=== PATIENT | male | born 1955 | race Caucasian/White ===

== ENCOUNTER 2025-10-20 08:39 | Inpatient (IN) | payer BC ==
[2025-10-20] MEDS ORDERED: Sodium Chloride 0.9% 2.5 ML Syringe FLUSH PRN ×2 (09:12→11:52)
[2025-10-20] MEDS ORDERED: Sodium Chloride 0.9% 10 ML Syringe FLUSH PRN ×2 (09:12→11:52)
[2025-10-20 09:37] LABS: BASOPHILS ABSOLUTE AUTO 0.02 K/uL (0.00-0.20); BASOPHILS PERCENT AUTO 0.3 % (0.0-1.0); EOSINOPHILS ABSOLUTE AUTO 0.01 K/uL (0.00-0.45); EOSINOPHILS PERCENT AUTO 0.1 % (0.0-6.0); IMMATURE GRAN ABSOLUTE AUTO 0.03 K/uL (0.00-0.05); IMMATURE GRAN PERCENT AUTO 0.4 % (0.0-0.4); LYMPHOCYTES ABSOLUTE AUTO 0.94 K/uL (1.00-4.80); LYMPHOCYTES PERCENT AUTO 13.2 % (24.0-44.0); MEAN PLATELET VOLUME 10.3 fL (9.4-12.4); MONOCYTES ABSOLUTE AUTO 0.58 K/uL (0.00-0.80); MONOCYTES PERCENT AUTO 8.2 % (0.0-8.0); NEUTROPHILS ABSOLUTE AUTO 5.52 K/uL (1.80-7.70); NEUTROPHILS PERCENT AUTO 77.8 % (41.0-71.0); NRBC ABSOLUTE 0.00 K/uL (0.00-0.02); NRBC PERCENT 0.0 /100WBC (0.0-0.2); PLATELET COUNT,PLT 221 K/uL (150-400); RED BLOOD CELL COUNT 4.97 M/uL (4.52-5.90); WHITE BLOOD CELL COUNT,WBC 7.10 K/uL (3.9-11.3)
[2025-10-20 09:42] LABS: BICARBONATE,VENOUS 31.0 mEq/L (22-29); PCO2 VENOUS 41.0 mmHG (41-51); PH,VENOUS 7.49 (7.32-7.43); PO2 VENOUS 36.0 mmHG (35-45)
[2025-10-20 09:43] LABS: BASE EXCESS VENOUS 7.1 (-2.0-3.0)
[2025-10-20] MEDS ORDERED: 50% Dextrose in Water 50 ML Syringe IVPUSH PRN ×3 (09:44→11:55)
[2025-10-20 09:58] LABS: INR 1.08 (0.86-1.11); PTT,PARTIAL THROMBOPLSTIN TIME 24.5 SEC (23.9-30.7)
[2025-10-20] MEDS: VANCOmycin 1.75 GM/350 ML 1.75 GM in Premix Bag 1 BAG IV ONE (10:12)
[2025-10-20 10:13] LABS: A/G RATIO 0.6 (0.9-1.6); ALANINE AMINOTRANSFERASE,ALT 19.0 IU/L (14-63); ASPARTATE AMNIOTRANSFERASE,AST 18.0 IU/L (15-37); BILIRUBIN TOTAL 0.8 mg/dL (0.2-1.0); BLOOD UREA NITROGEN,BUN 12.0 mg/dL (7.0-18.0); CARBON DIOXIDE,CO2 28.9 mmol/L (21.0-32.0); CHLORIDE,CL 94.0 mmol/L (98-107); CREATININE 1.3 mg/dL (0.8-1.3); EST CRCL DRUG DOSING (CG) 56.15 mL/min; GLUCOSE RANDOM 399.0 mg/dL (74-106); POTASSIUM,K 4.2 mmol/L (3.5-5.1); PROTEIN TOTAL,TP 7.7 g/dL (6.4-8.2); SODIUM,NA 131.0 mmol/L (136-148)
[2025-10-20] MEDS: Insulin Regular, Human 100 Units/ML 10 ML Vial IVPUSH ONE ×2 (10:13→11:13)
[2025-10-20 10:17] LABS: ESTIMATED GFR 60.0 mL/min (>60)
[2025-10-20] MEDS: Iopamidol 755 Mg/ML 100 ML Bottle IVPUSH ONE (10:41)
[2025-10-20] MEDS ORDERED: Ondansetron 4 MG/2 ML SDV IVPUSH PRN (11:52)
[2025-10-20] MEDS ORDERED: Naloxone 0.4 MG/ML SDV IVPUSH PRN (12:19)
[2025-10-20] MEDS: Gadoteridol 279.3 MG/ML 20 ML SDV IVPUSH ONE (12:29)
[2025-10-20 12:41] LABS: CHOLESTEROL HDL 40.0 mg/dL (40-60); CHOLESTEROL LDL CALCULATED 84.0 mg/dL (60-180); CHOLESTEROL TOTAL 143.0 mg/dL (50-200); TSH ULTRASENSITIVE 1.12 uIU/mL (0.36-3.74); VLDL CHOLESTEROL 19.0 mg/dL (5-55)
[2025-10-20] MEDS: Insulin Glargine,Human Rec. Analog 100 Units/ML 3 ML Pen SUBCUT ONE (13:06)
[2025-10-20] MEDS: Pantoprazole 40 MG in Sodium Chloride 0.9% 10 ML IVPUSH SCH (13:09)
[2025-10-20] MEDS: Insulin Glargine,Human Rec. Analog 100 Units/ML 3 ML Pen SUBCUT SCH (21:58)
[2025-10-21 06:40] LABS: BASOPHILS ABSOLUTE AUTO 0.04 K/uL (0.00-0.20); BASOPHILS PERCENT AUTO 0.6 % (0.0-1.0); EOSINOPHILS ABSOLUTE AUTO 0.15 K/uL (0.00-0.45); EOSINOPHILS PERCENT AUTO 2.2 % (0.0-6.0); IMMATURE GRAN ABSOLUTE AUTO 0.01 K/uL (0.00-0.05); IMMATURE GRAN PERCENT AUTO 0.1 % (0.0-0.4); LYMPHOCYTES ABSOLUTE AUTO 1.32 K/uL (1.00-4.80); LYMPHOCYTES PERCENT AUTO 19.8 % (24.0-44.0); MEAN PLATELET VOLUME 9.9 fL (9.4-12.4); MONOCYTES ABSOLUTE AUTO 0.53 K/uL (0.00-0.80); MONOCYTES PERCENT AUTO 7.9 % (0.0-8.0); NEUTROPHILS ABSOLUTE AUTO 4.63 K/uL (1.80-7.70); NEUTROPHILS PERCENT AUTO 69.4 % (41.0-71.0); NRBC ABSOLUTE 0.00 K/uL (0.00-0.02); NRBC PERCENT 0.0 /100WBC (0.0-0.2); PLATELET COUNT,PLT 204 K/uL (150-400); RED BLOOD CELL COUNT 4.17 M/uL (4.52-5.90); WHITE BLOOD CELL COUNT,WBC 6.68 K/uL (3.9-11.3)
[2025-10-21 07:03] LABS: BLOOD UREA NITROGEN,BUN 10.0 mg/dL (7.0-18.0); CARBON DIOXIDE,CO2 26.3 mmol/L (21.0-32.0); CHLORIDE,CL 103.0 mmol/L (98-107); CREATININE 1.2 mg/dL (0.8-1.3); EST CRCL DRUG DOSING (CG) 60.83 mL/min; ESTIMATED GFR 66.0 mL/min (>60); GLUCOSE RANDOM 225.0 mg/dL (74-106); POTASSIUM,K 3.5 mmol/L (3.5-5.1); SODIUM,NA 135.0 mmol/L (136-148)
[2025-10-21] MEDS ORDERED: Propofol 200 MG/20 ML SDV ONE (09:00)
[2025-10-21] MEDS ORDERED: fentaNYL 250 MCG/5 ML SDV ONE (09:00)
[2025-10-21] MEDS: Insulin Glargine,Human Rec. Analog 100 Units/ML 3 ML Pen SUBCUT SCH (22:01)
[2025-10-22 05:34] LABS: BASOPHILS ABSOLUTE AUTO 0.03 K/uL (0.00-0.20); BASOPHILS PERCENT AUTO 0.5 % (0.0-1.0); EOSINOPHILS ABSOLUTE AUTO 0.18 K/uL (0.00-0.45); EOSINOPHILS PERCENT AUTO 2.7 % (0.0-6.0); IMMATURE GRAN ABSOLUTE AUTO 0.02 K/uL (0.00-0.05); IMMATURE GRAN PERCENT AUTO 0.3 % (0.0-0.4); LYMPHOCYTES ABSOLUTE AUTO 1.38 K/uL (1.00-4.80); LYMPHOCYTES PERCENT AUTO 20.8 % (24.0-44.0); MEAN PLATELET VOLUME 10.2 fL (9.4-12.4); MONOCYTES ABSOLUTE AUTO 0.49 K/uL (0.00-0.80); MONOCYTES PERCENT AUTO 7.4 % (0.0-8.0); NEUTROPHILS ABSOLUTE AUTO 4.54 K/uL (1.80-7.70); NEUTROPHILS PERCENT AUTO 68.3 % (41.0-71.0); NRBC ABSOLUTE 0.00 K/uL (0.00-0.02); NRBC PERCENT 0.0 /100WBC (0.0-0.2); PLATELET COUNT,PLT 238 K/uL (150-400); RED BLOOD CELL COUNT 4.24 M/uL (4.52-5.90); WHITE BLOOD CELL COUNT,WBC 6.64 K/uL (3.9-11.3)
[2025-10-22 05:58] LABS: A/G RATIO 0.5 (0.9-1.6); ALANINE AMINOTRANSFERASE,ALT 22.0 IU/L (14-63); ASPARTATE AMNIOTRANSFERASE,AST 17.0 IU/L (15-37); BILIRUBIN TOTAL 0.7 mg/dL (0.2-1.0); BLOOD UREA NITROGEN,BUN 7.0 mg/dL (7.0-18.0); CARBON DIOXIDE,CO2 27.3 mmol/L (21.0-32.0); CHLORIDE,CL 103.0 mmol/L (98-107); CREATININE 1.1 mg/dL (0.8-1.3); EST CRCL DRUG DOSING (CG) 66.36 mL/min; GLUCOSE RANDOM 202.0 mg/dL (74-106); POTASSIUM,K 3.3 mmol/L (3.5-5.1); PROTEIN TOTAL,TP 6.5 g/dL (6.4-8.2); SODIUM,NA 137.0 mmol/L (136-148)
[2025-10-22 06:03] LABS: ESTIMATED GFR 73.0 mL/min (>60)
[2025-10-22] MEDS: Potassium Chloride 20 MEQ Tab.ER PO ONE (07:53)
[2025-10-22] MEDS: Magnesium Sulfate 2 GM/50 mL 2 GM in Premix Bag 1 BAG IV ONE (09:34)
[2025-10-22] MEDS ORDERED: 50% Dextrose in Water 50 ML Syringe IVPUSH PRN (13:55)
[2025-10-22] MEDS: Insulin Glargine,Human Rec. Analog 100 Units/ML 3 ML Pen SUBCUT SCH (21:31)
[2025-10-23 05:49] LABS: BASOPHILS ABSOLUTE AUTO 0.05 K/uL (0.00-0.20); BASOPHILS PERCENT AUTO 0.8 % (0.0-1.0); EOSINOPHILS ABSOLUTE AUTO 0.29 K/uL (0.00-0.45); EOSINOPHILS PERCENT AUTO 4.6 % (0.0-6.0); IMMATURE GRAN ABSOLUTE AUTO 0.02 K/uL (0.00-0.05); IMMATURE GRAN PERCENT AUTO 0.3 % (0.0-0.4); LYMPHOCYTES ABSOLUTE AUTO 1.39 K/uL (1.00-4.80); LYMPHOCYTES PERCENT AUTO 21.9 % (24.0-44.0); MEAN PLATELET VOLUME 9.9 fL (9.4-12.4); MONOCYTES ABSOLUTE AUTO 0.43 K/uL (0.00-0.80); MONOCYTES PERCENT AUTO 6.8 % (0.0-8.0); NEUTROPHILS ABSOLUTE AUTO 4.16 K/uL (1.80-7.70); NEUTROPHILS PERCENT AUTO 65.6 % (41.0-71.0); NRBC ABSOLUTE 0.00 K/uL (0.00-0.02); NRBC PERCENT 0.0 /100WBC (0.0-0.2); PLATELET COUNT,PLT 243 K/uL (150-400); RED BLOOD CELL COUNT 4.35 M/uL (4.52-5.90); WHITE BLOOD CELL COUNT,WBC 6.34 K/uL (3.9-11.3)
[2025-10-23 06:24] LABS: A/G RATIO 0.5 (0.9-1.6); ALANINE AMINOTRANSFERASE,ALT 22.0 IU/L (14-63); ASPARTATE AMNIOTRANSFERASE,AST 16.0 IU/L (15-37); BILIRUBIN TOTAL 0.8 mg/dL (0.2-1.0); BLOOD UREA NITROGEN,BUN 5.0 mg/dL (7.0-18.0); CARBON DIOXIDE,CO2 29.2 mmol/L (21.0-32.0); CHLORIDE,CL 103.0 mmol/L (98-107); CREATININE 1.1 mg/dL (0.8-1.3); EST CRCL DRUG DOSING (CG) 66.36 mL/min; GLUCOSE RANDOM 154.0 mg/dL (74-106); POTASSIUM,K 3.6 mmol/L (3.5-5.1); PROTEIN TOTAL,TP 6.8 g/dL (6.4-8.2); SODIUM,NA 138.0 mmol/L (136-148)
[2025-10-23 06:25] LABS: ESTIMATED GFR 73.0 mL/min (>60)
[2025-10-24 05:34] LABS: BASOPHILS ABSOLUTE AUTO 0.04 K/uL (0.00-0.20); BASOPHILS PERCENT AUTO 0.6 % (0.0-1.0); EOSINOPHILS ABSOLUTE AUTO 0.30 K/uL (0.00-0.45); EOSINOPHILS PERCENT AUTO 4.7 % (0.0-6.0); IMMATURE GRAN ABSOLUTE AUTO 0.03 K/uL (0.00-0.05); IMMATURE GRAN PERCENT AUTO 0.5 % (0.0-0.4); LYMPHOCYTES ABSOLUTE AUTO 1.56 K/uL (1.00-4.80); LYMPHOCYTES PERCENT AUTO 24.6 % (24.0-44.0); MEAN PLATELET VOLUME 9.8 fL (9.4-12.4); MONOCYTES ABSOLUTE AUTO 0.39 K/uL (0.00-0.80); MONOCYTES PERCENT AUTO 6.2 % (0.0-8.0); NEUTROPHILS ABSOLUTE AUTO 4.02 K/uL (1.80-7.70); NEUTROPHILS PERCENT AUTO 63.4 % (41.0-71.0); NRBC ABSOLUTE 0.00 K/uL (0.00-0.02); NRBC PERCENT 0.0 /100WBC (0.0-0.2); PLATELET COUNT,PLT 273 K/uL (150-400); RED BLOOD CELL COUNT 4.56 M/uL (4.52-5.90); WHITE BLOOD CELL COUNT,WBC 6.34 K/uL (3.9-11.3)
[2025-10-24 05:51] LABS: BLOOD UREA NITROGEN,BUN 5.0 mg/dL (7.0-18.0); CARBON DIOXIDE,CO2 30.9 mmol/L (21.0-32.0); CHLORIDE,CL 101.0 mmol/L (98-107); CREATININE 1.3 mg/dL (0.8-1.3); EST CRCL DRUG DOSING (CG) 56.15 mL/min; GLUCOSE RANDOM 166.0 mg/dL (74-106); POTASSIUM,K 3.3 mmol/L (3.5-5.1); SODIUM,NA 138.0 mmol/L (136-148)
[2025-10-24 05:52] LABS: ESTIMATED GFR 60.0 mL/min (>60)
[2025-10-24] MEDS: Potassium Chloride 20 MEQ Tab.ER PO ONE (08:37)
[2025-10-25 05:34] LABS: BASOPHILS ABSOLUTE AUTO 0.03 K/uL (0.00-0.20); BASOPHILS PERCENT AUTO 0.4 % (0.0-1.0); EOSINOPHILS ABSOLUTE AUTO 0.19 K/uL (0.00-0.45); EOSINOPHILS PERCENT AUTO 2.7 % (0.0-6.0); IMMATURE GRAN ABSOLUTE AUTO 0.02 K/uL (0.00-0.05); IMMATURE GRAN PERCENT AUTO 0.3 % (0.0-0.4); LYMPHOCYTES ABSOLUTE AUTO 1.28 K/uL (1.00-4.80); LYMPHOCYTES PERCENT AUTO 18.2 % (24.0-44.0); MEAN PLATELET VOLUME 9.9 fL (9.4-12.4); MONOCYTES ABSOLUTE AUTO 0.38 K/uL (0.00-0.80); MONOCYTES PERCENT AUTO 5.4 % (0.0-8.0); NEUTROPHILS ABSOLUTE AUTO 5.15 K/uL (1.80-7.70); NEUTROPHILS PERCENT AUTO 73.0 % (41.0-71.0); NRBC ABSOLUTE 0.00 K/uL (0.00-0.02); NRBC PERCENT 0.0 /100WBC (0.0-0.2); PLATELET COUNT,PLT 328 K/uL (150-400); RED BLOOD CELL COUNT 4.62 M/uL (4.52-5.90); WHITE BLOOD CELL COUNT,WBC 7.05 K/uL (3.9-11.3)
[2025-10-25 06:00] LABS: BLOOD UREA NITROGEN,BUN 5.0 mg/dL (7.0-18.0); CARBON DIOXIDE,CO2 30.7 mmol/L (21.0-32.0); CHLORIDE,CL 104.0 mmol/L (98-107); CREATININE 1.3 mg/dL (0.8-1.3); EST CRCL DRUG DOSING (CG) 56.15 mL/min; GLUCOSE RANDOM 125.0 mg/dL (74-106); POTASSIUM,K 3.8 mmol/L (3.5-5.1); SODIUM,NA 140.0 mmol/L (136-148)
[2025-10-25 06:04] LABS: ESTIMATED GFR 60.0 mL/min (>60)
[2025-10-26 05:37] LABS: BASOPHILS ABSOLUTE AUTO 0.05 K/uL (0.00-0.20); BASOPHILS PERCENT AUTO 0.7 % (0.0-1.0); EOSINOPHILS ABSOLUTE AUTO 0.21 K/uL (0.00-0.45); EOSINOPHILS PERCENT AUTO 2.9 % (0.0-6.0); IMMATURE GRAN ABSOLUTE AUTO 0.01 K/uL (0.00-0.05); IMMATURE GRAN PERCENT AUTO 0.1 % (0.0-0.4); LYMPHOCYTES ABSOLUTE AUTO 1.54 K/uL (1.00-4.80); LYMPHOCYTES PERCENT AUTO 21.5 % (24.0-44.0); MEAN PLATELET VOLUME 9.6 fL (9.4-12.4); MONOCYTES ABSOLUTE AUTO 0.38 K/uL (0.00-0.80); MONOCYTES PERCENT AUTO 5.3 % (0.0-8.0); NEUTROPHILS ABSOLUTE AUTO 4.96 K/uL (1.80-7.70); NEUTROPHILS PERCENT AUTO 69.5 % (41.0-71.0); NRBC ABSOLUTE 0.00 K/uL (0.00-0.02); NRBC PERCENT 0.0 /100WBC (0.0-0.2); PLATELET COUNT,PLT 385 K/uL (150-400); RED BLOOD CELL COUNT 5.21 M/uL (4.52-5.90); WHITE BLOOD CELL COUNT,WBC 7.15 K/uL (3.9-11.3)
[2025-10-26 06:04] LABS: BLOOD UREA NITROGEN,BUN 9.0 mg/dL (7.0-18.0); CARBON DIOXIDE,CO2 29.5 mmol/L (21.0-32.0); CHLORIDE,CL 102.0 mmol/L (98-107); CREATININE 1.4 mg/dL (0.8-1.3); EST CRCL DRUG DOSING (CG) 52.14 mL/min; GLUCOSE RANDOM 99.0 mg/dL (74-106); POTASSIUM,K 4.1 mmol/L (3.5-5.1); SODIUM,NA 140.0 mmol/L (136-148)
[2025-10-26 06:05] LABS: ESTIMATED GFR 55.0 mL/min (>60)
[2025-10-27 07:54] LABS: BASOPHILS ABSOLUTE AUTO 0.04 K/uL (0.00-0.20); BASOPHILS PERCENT AUTO 0.7 % (0.0-1.0); EOSINOPHILS ABSOLUTE AUTO 0.17 K/uL (0.00-0.45); EOSINOPHILS PERCENT AUTO 2.9 % (0.0-6.0); IMMATURE GRAN ABSOLUTE AUTO 0.05 K/uL (0.00-0.05); IMMATURE GRAN PERCENT AUTO 0.9 % (0.0-0.4); LYMPHOCYTES ABSOLUTE AUTO 1.57 K/uL (1.00-4.80); LYMPHOCYTES PERCENT AUTO 27.1 % (24.0-44.0); MEAN PLATELET VOLUME 9.5 fL (9.4-12.4); MONOCYTES ABSOLUTE AUTO 0.37 K/uL (0.00-0.80); MONOCYTES PERCENT AUTO 6.4 % (0.0-8.0); NEUTROPHILS ABSOLUTE AUTO 3.59 K/uL (1.80-7.70); NEUTROPHILS PERCENT AUTO 62.0 % (41.0-71.0); NRBC ABSOLUTE 0.00 K/uL (0.00-0.02); NRBC PERCENT 0.0 /100WBC (0.0-0.2); PLATELET COUNT,PLT 389 K/uL (150-400); RED BLOOD CELL COUNT 4.60 M/uL (4.52-5.90); WHITE BLOOD CELL COUNT,WBC 5.79 K/uL (3.9-11.3)
[2025-10-27 08:17] LABS: BLOOD UREA NITROGEN,BUN 11.0 mg/dL (7.0-18.0); CARBON DIOXIDE,CO2 31.9 mmol/L (21.0-32.0); CHLORIDE,CL 104.0 mmol/L (98-107); CREATININE 1.5 mg/dL (0.8-1.3); EST CRCL DRUG DOSING (CG) 48.67 mL/min; GLUCOSE RANDOM 119.0 mg/dL (74-106); POTASSIUM,K 4.0 mmol/L (3.5-5.1); SODIUM,NA 140.0 mmol/L (136-148)
[2025-10-27 08:18] LABS: ESTIMATED GFR 50.0 mL/min (>60)
[2025-10-27 12:12] VITALS: BP 137/76; PULSE 72
== END 2025-10-27 15:50 | disposition home or self-care (01) | DRG 314 ==
LOC: MW.ED 08:39 → MW.MS 11:41 → UNDODISIN 10-21 14:05
PROVIDERS: ADMIT Family Medicine; ATTEND Family Medicine
PROC: 3E03329 Introduction of Other Anti-infective into Peripheral Vein, Percutaneous Approach (ICD-10-PCS; 2025-10-21)
PROC: 0Y6Q0Z3 Detachment at Left 1st Toe, Low, Open Approach (ICD-10-PCS; principal; 2025-10-21 07:30)
DX: E11.69 Type 2 diabetes mellitus with other specified complication (principal); E11.621 Type 2 diabetes mellitus with foot ulcer; M86.8X7 Other osteomyelitis, ankle and foot; B95.1 Streptococcus, group B, as the cause of diseases classified elsewhere; F10.90 Alcohol use, unspecified, uncomplicated; L97.529 Non-pressure chronic ulcer of other part of left foot with unspecified severity; E11.65 Type 2 diabetes mellitus with hyperglycemia; I10 Essential (primary) hypertension; E11.628 Type 2 diabetes mellitus with other skin complications; L03.116 Cellulitis of left lower limb; S09.90XA Unspecified injury of head, initial encounter; E11.9 Type 2 diabetes mellitus without complications; L02.612 Cutaneous abscess of left foot; Z79.84 Long term (current) use of oral hypoglycemic drugs; Z79.2 Long term (current) use of antibiotics; Z79.4 Long term (current) use of insulin; Z79.899 Other long term (current) drug therapy; Z79.1 Long term (current) use of non-steroidal anti-inflammatories (NSAID)
CPT/HCPCS: 01480; 36415; 70450; 70450-26; 71045; 71045-26; 72125; 72125-26; 73706-26-LT; 73706-LT; 73720-26-LT; 73720-LT; 76000; 76000-26; 80048; 80053; 80061; 80202; 82803; 82947; 83036; 83605; 83735; 84443; 85025; 85610; 85652; 85730; 86140; 87040; 87070; 87075; 87077; 87186; 87205; 93005; 93010; 96365; 96367; 99285; 99285-25; A9270-GY; A9579; J0665; J1650; J1815-GY; J2470; J2543; J2704; J3010; J3374; J3375; J3475; J7030; J7050; Q9967